=== PATIENT | female | born 1960 | race African-American/Black ===

== ENCOUNTER → 2016-11-09 | Day surgery (SDC) | payer BC, OTHER ==
[~2016-11-09] MED LIST: AMLODIPINE BESY10 MG PO; CLARITIN10 M4 PO; GLUCOSAMINE &1 EAC1 PO; HYDROCHLOROTHIA25 MG PO; MULTI-DAY PLUS1 EACH PO; PRINIVIL40 MG PO; ST JOSEPH ASPIR81 M1 PO; TYLENOL325 M1 PO
--- NOTE | ~2016-11-09 | OR ---
Unit #: [id number] #: [id number] Patient: VERN LOCKWOOD [id number] [address] [place], [place] [address] [id number] O MR#: [id number] NAME: VERN LOCKWOOD ROOM: Date of Procedure: 11/09/2016 Admission Date: 11/09/2016 Surgeon: Jovanny Winters M.D. : 1960 Attending Physician: Jovanny Winters M.D. Referring Physician: Jovanny Winters M.D. Primary Care Physician: Marycruz Helton OPERATIVE REPORT PROCEDURE PERFORMED Colonoscopy to cecum. INDICATIONS FOR PROCEDURE A 56-year-old with average risk for colorectal cancer. MEDICATIONS Monitored anesthesia. POSTOPERATIVE FINDINGS Colon exam completed to cecum. Good prep. No polyps, masses, or colitis. PLAN Repeat colonoscopy in 10 years. DESCRIPTION OF PROCEDURE The patient was explained of the procedure, risks, and benefits along with risks and benefits of anesthesia. She was brought to the endoscopy room. Propofol anesthesia was given. Rectal exam was done, which was normal. Colonoscope was lubricated, passed up the rectum, advanced under direct vision all the way to cecum. Cecum was identified by ileocecal valve and appendiceal orifice. At this point, I started to pull the scope out carefully looking. No polyps, masses, or colitis was seen. Mucosa was normal and healthy. I retroflexed in the rectum, small hemorrhoids seen. Gently, the scope was pulled out. She tolerated it well. Dictated by... Ekta Piedra/chante TD: 11/09/2016 23:59 JOB #: [id number] Unit #: [id number] #: [id number] Patient: VERN LOCKWOOD OPERATIVE REPORT Page 1 of 1 X Joavnny Winters MD X PROCEDURE OPERATIVE NOTE
== END | disposition home or self-care (01) ==
LOC: COPS 08:21
PROVIDERS: Internal Medicine
PROC: 0DJD8ZZ Inspection of Lower Intestinal Tract, Via Natural or Artificial Opening Endoscopic (ICD-10-PCS; principal; 2016-11-09 10:30)
DX: Z08 Encounter for follow-up examination after completed treatment for malignant neoplasm (principal)
CPT/HCPCS: J2250